=== PATIENT | male | born 1960 | race Caucasian/White ===

== ENCOUNTER 2023-11-23 14:39 | Outpatient (CLI) | payer BC, SELFPAY ==
--- NOTE | 2023-11-23 14:56 | XR_ITS ---
WS: [id number] Lumbar spine with flexion, extension, and neutral lateral, 11/23/2023 Clinical Data: M54.50 Comparison: None. Findings: No compression fractures or subluxation is seen. There is degenerative disc narrowing at L4-L5 and L5 -S1. There are minimal osteophytes L3-L5. No limitation of motion or subluxation is seen. Impression: 1. Degenerative disc narrowing at L4-L5 and L5-S1 along with osteophytes L3-L5. 2. No limitation of motion or subluxation is seen on flexion or extension.
== END 2023-11-23 14:40 | disposition home or self-care (01) ==
PROVIDERS: PCP Nurse Practitioner; Visit Provider Nurse Practitioner
DX: M51.37 Other intervertebral disc degeneration, lumbosacral region (principal); M25.78 Osteophyte, vertebrae; M48.07 Spinal stenosis, lumbosacral region
CPT/HCPCS: 72120

== ENCOUNTER → 2024-10-07 10:04 | Outpatient (BNVA) | payer MEDICARE, SELFPAY | PROVIDERS: PCP Family Medicine; Visit Provider Family Medicine | DX: R30.0 Dysuria (principal) | CPT/HCPCS: 80053; 80061; 81000; 82306; 85025; 86140; 87086; G0103 ==

== ENCOUNTER 2024-10-18 08:04 | Outpatient (CLI) | payer MEDICARE, SELFPAY ==
--- NOTE | 2024-10-18 08:07 | XR_ITS ---
WS: [id number] LUMBAR SPINE: 3 VIEWS TECHNIQUE: AP, lateral and L5-S1 spot. HISTORY: M54.50 - Low back pain, unspecified COMPARISON: 11/23/2023 Posterior lumbar alignment is normal. Moderate disc space narrowing at L5-S1. Small hypertrophic oste ophytes throughout the lumbar spine. No fracture. Mild LEFT curvature lumbar spine. Sclerotic changes and narrowing involving the SI joints, LEFT greater than RIGHT. XR/XR lumbar spine 2-3V* [id number] IMPRESSION: 1. No lumbar spine fracture. 2. Moderate degenerative disc space narrowing at L5-S1. 3. Bilateral SI joint narrowing and sclerosis.
--- NOTE | 2024-10-18 08:30 | US_ITS ---
WS: [id number] RENAL ULTRASOUND HISTORY: R31.9 - Hematuria, unspecified COMPARISON: None available. TECHNIQUE: 2-D and color Doppler imaging of the kidney submitted. Right kidney: 11.5 cm x 6.3 cm x 5.7 cm. Cortex: 1.2 cm Normal echogenicity with no hydronephrosis or mass. Left kidney: 10.2 cm x 6.3 cm x 6.0 cm. Cortex: 1.3 cm Normal size kidney. No hydronephrosis. There is a single cyst with through transmission associated wi th the lower pole. Cyst measures 10.3 x 8.4 x 8.6 cm. No solid mass or obstruction. Aorta: Normal. Urinary Bladder: Normal distention. US/US renal BI* [id number] IMPRESSION: 1. No hydronephrosis. Normal size kidneys. 2. Large simple cyst LEFT kidney.
== END 2024-10-18 08:05 | disposition home or self-care (01) ==
LOC: RAD 08:05
PROVIDERS: PCP Family Medicine; Visit Provider Family Medicine
DX: M51.360 Other intervertebral disc degeneration, lumbar region with discogenic back pain only; M51.370 Other intervertebral disc degeneration, lumbosacral region with discogenic back pain only; M46.1 Sacroiliitis, not elsewhere classified; N28.1 Cyst of kidney, acquired; M25.78 Osteophyte, vertebrae; R31.9 Hematuria, unspecified
CPT/HCPCS: 72100; 76770